=== PATIENT | male | born 1990 | race Native Hawaiian/Other Pacific Islander ===

== ENCOUNTER → 2016-08-18 | Outpatient (CLI) | payer OTHER ==
--- NOTE | 2016-08-18 19:52 | MR ---
EXAMINATION TYPE: MR shoulder LT wo con DATE OF EXAM: 08/18/2016 6:02 PM COMPARISON: NONE HISTORY: Left shoulder pain for 2 months TECHNIQUE: Multiplanar, multisequence imaging of the left shoulder is performed without contrast. FINDINGS: Rotator Cuff: There is tendinosis, thickening and abnormal increased signal within the tendon, there is fluid signal in the subacromial subdeltoid bursa, attenuation of the rotator cuff tendon with part ial-thickness tear suspected of the infraspinatus tendon approximately 1 cm from the insertion Acromioclavicular Joint: Hypertrophic changes present. Glenohumeral Joint: No significant arthropathy is evident Labrum: The labrum appears grossly intact given limitation of non-arthrogram study. Biceps Tendon: The long head of biceps is in normal location within bicipital groove. Bone marrow signal: No focal abnormal marrow signal is appreciated. Other: There is some motion on the exam. IMPRESSION: Findings indicative of impingement with tendinosis and partial thickness tear of the rotator cuff ten don.
== END | disposition home or self-care (01) ==
LOC: RADMRIMAIN 16:36
PROVIDERS: ATTEND Internal Medicine
DX: M75.112 Incomplete rotator cuff tear or rupture of left shoulder, not specified as traumatic (principal); M25.812 Other specified joint disorders, left shoulder

== ENCOUNTER 2016-11-02 21:29 | Inpatient (IN) | payer MEDICAID, OTHER ==
--- NOTE | 2016-11-02 21:49 | ED ---
Psych HPI - General Chief Complaint: Psychiatric Symptoms Stated Complaint: Mental Health Time Seen by Provider: 11/02/16 21:30 Source: patient, police, RN notes reviewed Mode of arrival: ambulatory - History of Present Illness Initial Comments: 26-year-old male presents emergency Department with police for psychiatric evaluation. Patient states that he is currently suicidal and depressed. Patient states that he is about to lose his kids and is court date tomorrow. Patient states that he is standing by the train tracks the pain was calm and states that he started in front of it. In which an officer grabbed by the way. Patient does have a laceration to his forehead and complains of right hand pain. Patient states he believes his tetanus is up-to-date. Patient denies any illicit drug abuse but states he does drink alcohol on a regular basis. - Related Data Home Medications Medication Instructions Recorded Confirmed Albuterol Inhaler [Ventolin Hfa 2 puff INHALATION RT-QID PRN 11/02/16 11/02/16 Inhaler] HYDROcodone/APAP 10-325MG [[place] 1 tab PO BID PRN 11/02/16 11/02/16 10-325] Loratadine [Claritin] 10 mg PO DAILY PRN 11/02/16 11/02/16 Previous Rx's Medication Instructions Recorded Nicotine 14Mg/24Hr Patch [Habitrol] 1 patch TRANSDERM DAILY #14 patch 11/05/16 Allergies Allergy/AdvReac Type Severity Reaction Status Date / Time Pertussis Vaccines Allergy Rash/Hives Verified 11/03/16 23:15 Review of Systems ROS Statement: Those systems with pertinent positive or pertinent negative responses have been documented in the HPI. ROS Other: All systems not noted in ROS Statement are negative. Past Medical History Past Medical History: Asthma History of Any Multi-Drug Resistant Organisms: None Reported Additional Past Surgical History / Comment(s): eye surgery Past Psychological History: Anxiety, Depression Smoking Status: Current every day smoker Past Alcohol Use History: Daily, Heavy Past Drug Use History: None Reported, Prescription Drug Abuse - Past Family History Father Family Medical History: No Reported History Mother Family Medical History: Musculoskeletal Disorder Additional Family Medical History / Comment(s): anxiety Brother(s) Family Medical History: Cancer Daughter(s) Family Medical History: No Reported History Son(s) Family Medical History: No Reported History General Exam Limitations: no limitations General appearance: alert, in no apparent distress Head exam: Present: atraumatic, normocephalic. Absent: normal inspection ( Superficial laceration to the for an approximate 1 cm) Eye exam: Present: normal appearance, PERRL, EOMI. Absent: scleral icterus, conjunctival injection, periorbital swelling ENT exam: Present: normal exam, normal oropharynx, mucous membranes moist, TM's normal bilaterally Neck exam: Present: normal inspection, full ROM. Absent: tenderness, meningismus, lymphadenopathy Respiratory exam: Present: normal lung sounds bilaterally. Absent: respiratory distress, wheezes, rales, rhonchi, stridor Cardiovascular Exam: Present: regular rate, normal rhythm, normal heart sounds. Absent: systolic murmur, diastolic murmur, rubs, gallop, clicks GI/Abdominal exam: Present: soft, normal bowel sounds. Absent: distended, tenderness, guarding, rebound, rigid Extremities exam: Present: other (Right hand there is tenderness over the second third digit across the PIP there is small abrasion noted) Back exam: Present: full ROM. Absent: tenderness Neurological exam: Present: alert, oriented X3, CN II-XII intact, reflexes normal. Absent: motor sensory deficit Psychiatric exam: Present: depressed Skin exam: Present: warm, dry, intact, normal color. Absent: rash Course Vital Signs 11/02/16 11/03/16 21:39 05:25 Temperature 97.1 F L 98 F Pulse Rate 85 60 Respiratory 20 18 Rate Blood Pressure 126/71 103/61 O2 Sat by Pulse 98 100 Oximetry Medical Decision Making - Lab Data Result diagrams: 11/03/16 08:52 11/03/16 08:52 Disposition Clinical Impression: Depression Disposition: TRANSFER TO PSYCH HOSP/UNIT Condition: Stable
--- NOTE | 2016-11-02 22:07 | CT ---
EXAMINATION TYPE: CT brain wo con DATE OF EXAM: 11/02/2016 9:58 PM COMPARISON: EXAMINATION TYPE: CT brain wo con DATE OF EXAM: 11/02/2016 9:58 PM COMPARISON: NONE HISTORY: Suicide attempt today. CT DLP: 1078.20 mGycm Automated exposure control for dose reduction was used. FINDINGS: The ventricles and sulci appear normal. There is no mass effect nor midline shift. There is no sign o f intracranial hemorrhage. The calvarium is intact. There is medial deviation of the medial wall of t he right bony orbit consistent with old blowout fracture. IMPRESSION: NO ACUTE INTRACRANIAL ABNORMALITY. THERE IS PROBABLY AN OLD BLOWOUT FRACTURE OF THE MEDIAL WALL RIGHT BONY ORBIT. HISTORY: Suicide attempt today. CT DLP: 1078.20 mGycm Automated exposure control for dose reduction was used. FINDINGS: There is no acute intracranial hemorrhage, mass effect, or midline shift identified. The ventricles and sulci are within normal limits in size. The globes are intact and the visualized sinuses are debbie ar. IMPRESSION: No acute intracranial hemorrhage, mass effect, or midline shift is seen.
--- NOTE | 2016-11-02 22:42 | XR ---
EXAM: XR Right Hand Complete, 3 or More Views CLINICAL HISTORY: Reason: Pain TECHNIQUE: Frontal, lateral and oblique views of the right hand. COMPARISON: No relevant prior studies available. FINDINGS: Bones/joints: Unremarkable. No acute fracture. No dislocation. Soft tissues: Unremarkable. No radiopaque foreign body. IMPRESSION: Normal right hand x-rays.
[2016-11-03] MEDS ORDERED: ACETAMINOPHEN TAB 325 MG TAB PO PRN (05:15)
[2016-11-03] MEDS ORDERED: MAG HYDROX/AL HYDROX/SIMETH 30 ML CUP PO PRN (05:15)
[2016-11-03] MEDS ORDERED: MAGNESIUM HYDROXIDE 2,400 MG/10 ML CUP PO PRN (05:15)
[2016-11-03] MEDS ORDERED: LORATADINE 10 MG TAB PO PRN (05:21)
[2016-11-03] MEDS ORDERED: ALBUTEROL INHALER 60 PUFF/8 GM INHALER INHALATION PRN (05:21)
[2016-11-03] MEDS ORDERED: AMOXICILLIN 500 MG CAP PO SCH (05:30)
[2016-11-03] MEDS ORDERED: LORazepam 1 MG TAB PO PRN (07:02)
[2016-11-03 09:30] LABS: ALT 39 U/L (21-72); AST 39 U/L (17-59); Alkaline Phosphatase 47 U/L (38-126); Anion Gap 10 mmol/L; Blood Urea Nitrogen 15 mg/dL (9-20); Calcium 9.4 mg/dL (8.4-10.2); Carbon Dioxide 26 mmol/L (22-30); Chloride 108 mmol/L (98-107); Glucose 91 mg/dL (74-99); Non-African American GFR(MDRD) >60 (>60 ml/min/1.73 sqM); Potassium 4.6 mmol/L (3.5-5.1); Sodium 144 mmol/L (137-145); Total Bilirubin 0.9 mg/dL (0.2-1.3)
[2016-11-03 09:41] LABS: Basophils # (A) 0.1 k/uL (0-0.2); Basophils % (A) 1 %; CH 32.3; CHCM 34.2; Eosinophils # (A) 0.2 k/uL (0-0.7); Eosinophils % (A) 2 %; HDW 2.19; HGB 14.3 gm/dL (13.0-17.5); Luc # (Auto) 0.18; Luc % (Auto) 2; Lymphocytes # (A) 1.4 k/uL (1.0-4.8); Lymphocytes % (A) 17 %; MCH 32.3 pg (25.0-35.0); MCHC 34.1 g/dL (31.0-37.0); MCV 94.9 fL (80.0-100.0); Mean Platelet Volume 6.8; Monocytes # (A) 0.5 k/uL (0-1.0); Monocytes % (A) 6 %; Neutrophils # (A) 5.7 k/uL (1.3-7.7); Neutrophils % (A) 71 %; RBC 4.43 m/uL (4.30-5.90); RDW 12.4 % (11.5-15.5); WBC (Perox) 7.69
[2016-11-03] MEDS: AMOXICILLIN 500 MG CAP PO SCH ×2 (10:51→17:43)
[2016-11-03] MEDS: NICOTINE 14MG/24HR PATCH TRANSDERM SCH (10:53)
--- NOTE | 2016-11-03 12:06 | P.HP ---
Psychiatric H&P - . H&P Date: 11/03/16 History & Physical: IDENTIFYING DATA: Mr. Ogden is a 26-year-old single male who [facility]. The patrol police sergeant completed a Petition that read "Arturo attempted to jump in front of a moving train to try to kill himself. Arturo was stopped by deputies as he ran in front of a train. He advised me he wanted to ." HISTORY OF PRESENT ILLNESS: He described feeling stressed over financial, housing and child custody issues. 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 He lost a job because he was unable to perform the duties due to alleged work related shoulder injury. After he lost a job he was unable to pay rent and lost his home. He has been living with friends and family since June. In addition, CPS became involved when his ex- girlfriend abandoned their 2 young children at school. This occurred about one month ago and he has since been awarded temporary custody. He is unaware of his ex-girlfriends whereabouts. The children sleep at his parents home but he spends the day with the children. He had a probate hearing this morning regarding custody of the 2 children. He described increased alcohol use over the last several months. On the day of admission he drank excessively. He went to the park with his 2 children and some friends. He recalls drinking several beers and at least 3 pints of liquor. He does not remember what occurred at the park but his friends abandoned him and his 2 children. He called his mother to slate picker the children. He remembers walking to the train tracks and attempting to step in front of a moving train. He stated he felt depressed and overwhelmed by his social problems. He remembers the police intervening, handcuffing him and placed in the back of the police car. He sustained a laceration to his forehead because he was banging his head against the Plexiglas divider in the police car. His BAT on presentation EC was 0.182. In retrospect, he attributes the distress and increased alcohol use to concern over the outcome of the child custody hearing this morning. He denied prior suicide attempts or gestures. He described feeling depressed but denied that he had thought about or suicide prior to becoming intoxicated. He described a general sense of anxiety related to his social problems but denied symptoms suggestive of panic attack. He denied periods of elevated mood or sustained irritability consistent with karne or hypomania. He denied psychotic symptoms such as auditory or visual hallucinations, ideas reference, thought insertion, thought broadcasting or thought control. He denied alcohol withdrawal symptoms PAST PSYCHIATRIC HISTORY: He denied history of mental health treatment or psychiatric hospitalizations. PAST MEDICAL HISTORY: He described a history of right shoulder pain for which she is prescribed Narco. ALLERGIES: Pertussis vaccines. SUBSTANCE USE HISTORY: He began using alcohol when he is 11 years old. He was vague about the amount and frequency but admitted that his alcohol use other that his alcohol use increased over the last "several months". He usually drinks beer and often has 5 more drinks during a drinking episode. He smokes marijuana "occasionally" but denied use of other drugs such as cocaine, crack cocaine, methamphetamine, heroin etc. FAMILY PSYCHIATRIC/SUBSTANCE USE HISTORY: He believes his father had a drinking problem when he was younger. He is unaware of a family history of mental illness. LEGAL HISTORY: According to the [facility] court docket he has charges of attempted child abuse 3 degree, trespassing, and alcohol consumption by a minor second offense. He denied that he is on probation, parole or has pending charges. SOCIAL HISTORY: He was born and raised in [facility] [place] by an intact family. He has 2 brothers and 1 sister. He left school when he was 17 years old and began working. He did not obtain his GED. He has 2 children, ages 2 and 4, by a former girlfriend. He is temporary guardianship and is at risk for losing custody of the children. He is currently unemployed and has no income. He has no stable housing. MENTAL STATUS EXAM: He presented as a thin 26-year-old [place] male who was pleasant on approach. He made eye contact and attended to the interview. He had a 1.5 cm laceration on his forehead and no prominent physical abnormalities. He had a blunted facial expression. He was alert and oriented to person, place and time. He showed no abnormality of psychomotor activity. He had no abnormal involuntary movements. His speech was spontaneous with slight decrease in rate and rhythm. He had no articulation difficulties. His affect was anxious but stable and appropriate. He denied suicidal ideation or wishes. He denied homicidal ideation. He feels hopeless and helpless in regard to his inability to work or take care of his children. He ruminated about child custody hearing. He did not express ideas of reference, paranoid ideation or delusional thinking. His thinking was concrete but his associations were coherent and logical. Global impression of intellect is average to below. He has limited awareness or understanding of his alcohol use problems. STRENGTHS: Good physical health, supportive family. WEAKNESSES: According his disorder, lack of income, lack of housing, child custody issues. IMPRESSION: His 26-year-old Finnish male who has history of alcohol use disorder. He presented to [facility] involuntarily and the police completed a petition for hospitalization. He became acutely intoxicated yesterday to the point where he did not remember what had occurred. He described becoming increasingly depressed and attempted to walk in front of moving train. He complains of depression related to his multiple social stresses include unemployment, lack of income, lack of housing and child custody issues. He is denying alcohol withdrawal symptoms and is minimizing the severity of his alcohol use problems. He is currently denying suicidal ideation, intent or plan. He remains concerned about child custody because a hearing was scheduled this morning. He should be treated on an outpatient basis with a combination of psychopharmacology and multimodal therapy. PRINCIPLE DIAGNOSIS: Unspecified depressive disorder, alcohol use disorder, alcohol intoxication, lack of housing, lack of income RECOMMENDATION: Continue inpatient hospitalization. He agreed to a voluntary admission and signed the voluntary admission form. Continue CIWA with lorazepam for alcohol withdrawal symptoms. Consult medicine for initial physical exam and medical history. Once he is sober, evaluate for treatment with antidepressant. Encourage participation in therapeutic groups and activities. Evaluate clinical status response to treatment on a daily basis. Allergies Allergy/AdvReac Type Severity Reaction Status Date / Time Pertussis Vaccines Allergy Rash/Hives Verified 11/02/16 21:55 Vital Signs Temp 97 F L 11/03/16 05:42 Pulse 62 11/03/16 05:42 Resp 18 11/03/16 05:42 BP 129/78 11/03/16 05:42 Pulse Ox 100 11/03/16 05:25 Intake & Output 11/02/16 11/03/16 11/03/16 18:59 06:59 18:59 Weight 74.843 kg Laboratory Last Values WBC 8.0 k/uL (3.8-10.6) 11/03/16 08:52 RBC 4.43 m/uL (4.30-5.90) 11/03/16 08:52 Hgb 14.3 gm/dL (13.0-17.5) 11/03/16 08:52 Hct 42.0 % (39.0-53.0) 11/03/16 08:52 MCV 94.9 fL (80.0-100.0) 11/03/16 08:52 MCH 32.3 pg (25.0-35.0) 11/03/16 08:52 MCHC 34.1 g/dL (31.0-37.0) 11/03/16 08:52 RDW 12.4 % (11.5-15.5) 11/03/16 08:52 Plt Count 293 k/uL (150-450) 11/03/16 08:52 Neutrophils % 71 % 11/03/16 08:52 Lymphocytes % 17 % 11/03/16 08:52 Monocytes % 6 % 11/03/16 08:52 Eosinophils % 2 % 11/03/16 08:52 Basophils % 1 % 11/03/16 08:52 Neutrophils # 5.7 k/uL (1.3-7.7) 11/03/16 08:52 Lymphocytes # 1.4 k/uL (1.0-4.8) 11/03/16 08:52 Monocytes # 0.5 k/uL (0-1.0) 11/03/16 08:52 Eosinophils # 0.2 k/uL (0-0.7) 11/03/16 08:52 Basophils # 0.1 k/uL (0-0.2) 11/03/16 08:52 Sodium 144 mmol/L (137-145) 11/03/16 08:52 Potassium 4.6 mmol/L (3.5-5.1) 11/03/16 08:52 Chloride 108 mmol/L (98-107) H 11/03/16 08:52 Carbon Dioxide 26 mmol/L (22-30) 11/03/16 08:52 Anion Gap 10 mmol/L 11/03/16 08:52 BUN 15 mg/dL (9-20) 11/03/16 08:52 Creatinine 0.81 mg/dL (0.66-1.25) 11/03/16 08:52 Est GFR (MDRD) Af Amer >60 (>60 ml/min/1.73 sqM) 11/03/16 08:52 Est GFR (MDRD) Non-Af >60 (>60 ml/min/1.73 sqM) 11/03/16 08:52 Glucose 91 mg/dL (74-99) 11/03/16 08:52 Calcium 9.4 mg/dL (8.4-10.2) 11/03/16 08:52 Total Bilirubin 0.9 mg/dL (0.2-1.3) 11/03/16 08:52 AST 39 U/L (17-59) 11/03/16 08:52 ALT 39 U/L (21-72) 11/03/16 08:52 Alkaline Phosphatase 47 U/L (38-126) 11/03/16 08:52 Total Protein 7.0 g/dL (6.3-8.2) 11/03/16 08:52 Albumin 4.5 g/dL (3.5-5.0) 11/03/16 08:52 TSH 3.160 mIU/L (0.465-4.680) 11/03/16 08:52 11/03/16 11:32
[2016-11-03] MEDS ORDERED: IBUPROFEN 200 MG TAB PO PRN (14:56)
--- NOTE | 2016-11-03 18:02 | CONS ---
DATE OF CONSULTATION: 11/03/2016 REASON FOR CONSULTATION: Advice regarding substance abuse and other medical issues requested by psychiatrist. HISTORY OF PRESENT ILLNESS: This 27-year-old gentleman with a past history of anxiety, depression, history of prescription drug abuse, history of low back pain, history of asthma, using on a p.r.n. being followed by Dr. Robins in the outpatient setting, apparently was taken to [facility] and was admitted for psychiatric evaluation after the patient attempted jumping from a running train apparently. There is no history of fever, rigors or chills. No history of headache, loss of consciousness or seizures. Patient had a lacerated small injury on the forehead. The patient was trying to butt heads with the police car. The patient had a CT scan which did not ended ataxia no chest pain. No chest pain, no palpitations. No history of headache, loss of consciousness or seizures. No fevers, rigors or chills. No nausea or vomiting or diarrhea at this time. Past medical history of anxiety, depression, history of nicotine dependence, history of prescription drug abuse, history of substance abuse. MEDICATIONS: Home medications are: 1. [place] 10 mg b.i.d. p.r.n. 2. Amoxil 500 mg. 3. Ventolin HFA 2 puffs q.i.d. 4. Claritin 10 mg daily p.r.n. ALLERGIES: PERTUSSIS VACCINE. FAMILY HISTORY: No history of heart disease or strokes in the family. SOCIAL HISTORY: Smoking and polysubstance abuse. REVIEW OF SYSTEMS: HEENT: As mentioned earlier. CARDIOVASCULAR: No angina or palpitations. RESPIRATORY: No cough. No hemoptysis. GASTROINTESTINAL: No nausea or vomiting. : No dysuria. CENTRAL NERVOUS SYSTEM: No numbness, weakness. ALLERGY/IMMUNOLOGY: as mentioned earlier. HEMATOLOGY/ONCOLOGY: No history of anemia. ENDOCRINE: No history of diabetes. CONSTITUTIONAL: As mentioned earlier. DERMATOLOGY: As mentioned earlier RHEUMATOLOGY: Negative. PSYCHIATRY: As mentioned earlier. PHYSICAL EXAMINATION: The patient is alert and oriented times three. Pulse 60. Blood pressure 103/61, respiration 18, temperature 98 degrees. Pulse ox 100% on room air. HEENT: Conjunctivae normal. NECK: No jugular venous distention. CARDIOVASCULAR: S1, S2 muffled. RESPIRATORY: Breath sounds diminished in the bases. A few rhonchi. No crackles. ABDOMEN: soft, nontender. No mass palpable. LEGS: No edema. No swelling. Minimal bruise over the right knee with mild tenderness. CENTRAL NERVOUS SYSTEM: Higher functions as mentioned earlier. Moves all four limbs. No focal deficits. LYMPHATICS: No lymph nodes palpable in the neck, axillae or groin. SKIN: Skin of the forehead lacerated wound . LABS: CBC within normal limits. Chloride is 108. CMP within normal limits. ASSESSMENT: 1. History of asthma, chronic intermittent. 2. History of polysubstance abuse. 3. History of nicotine dependence. 4. Anxiety. Depression. 5. History of small lacerated wound superficial on the forehead. 6. FULL CODE. RECOMMENDATIONS AND DISCUSSION: In this 27 -year-old gentleman who presented with multiple complex medical issues, we will monitor the patient closely, continue the current medications, continue symptomatic treatment. I would recommend local antibiotics. Continue to monitor. Otherwise symptomatic treatment with Motrin is suggested at this time. Recommended close follow up with Dr. Robins as well as social work program coordinator counselling also. We will follow the patient closely with you. Thank you for letting us participate in the care of this patient. KIMBERLY
[2016-11-03 23:02] VITALS: BMI 19.0
[2016-11-04] MEDS: AMOXICILLIN 500 MG CAP PO SCH ×4 (00:46→23:55)
[2016-11-04 06:22] VITALS: RESP 16
[2016-11-04] MEDS: NICOTINE 14MG/24HR PATCH TRANSDERM SCH (08:56)
[2016-11-04] MEDS ORDERED: BACITRACIN OINT 1 EACH PACKET TOPICAL ONE (09:01)
--- NOTE | 2016-11-04 11:34 | P.PN ---
Progress Note - Text SUBJECTIVE: I reviewed the medical record, interviewed Mr. Bagley and discuss his treatment and treatment plan during team meeting. He is unaware of the outcome of the probate hearing yesterday regarding his children. His mother notified the courts about his admission and told the psych social worker that CPS will remain involved. He expressed interest in substance abuse treatment. He talked about his mother frequently criticizing his alcohol use and his difficulty controlling his use. He gave usual story where one drink is not enough and when he intends to have 1 beer he often drinks 5 or more. He denied alcohol withdrawal symptoms. He denied feeling depressed or having thoughts of or suicide. He plans to live with his parents temporarily after discharge and will live with either his brother or his cousin until was able to find a job and went to his own apartment. OBJECTIVE: He presented as a casually groomed and [place] male who was pleasant on approach. He maintained eye contact and attended to the interview. He had a healing cut on his forehead but no prominent physical abnormalities. He had a blunted facial expression. He was alert and oriented to person, place and time. He showed slight psychomotor ideation but no abnormal involuntary movements. His hands were steady and there is no evidence of tremor. His speech was spontaneous with normal rate, rhythm and volume. His affect was blunted but stable and appropriate. He denied suicidal ideation or wishes. He denied homicidal ideation. He denied feeling hopeless, helpless or worthless. He ruminated about his multiple stresses e.g. care of his children, lack of income, lack of permanent housing. He did not express ideas reference, paranoid ideation or delusional thinking. His thinking was concrete but his associations were coherent and logical. He denied hallucinations and did not appear to be responding to internal stimuli. ASSESSMENT: He is having minimal to no alcohol withdrawal symptoms. He expressed interest in a substance abuse treatment. Overall, he appears minimally to moderately mentally ill and much improved from admission. PLAN: To call the Access line to arrange admission to a substance abuse treatment program. Continue CIWA with lorazepam for alcohol withdrawal symptoms. There is no indication for antidepressant medication at this time. Reschedule family meeting to 11/05/2016.
[2016-11-05 06:48] VITALS: BP 132/67; PULSE 63; TEMP 98.1
[2016-11-05] MEDS: AMOXICILLIN 500 MG CAP PO SCH (08:29)
[2016-11-05] MEDS: NICOTINE 14MG/24HR PATCH TRANSDERM SCH (08:29)
--- NOTE | 2016-11-05 13:50 | P.DS ---
Providers Date of admission: 11/03/16 04:58 Attending physician: Balta Eid MD Consults: 11/03/16 05:15 Consult Physician Routine Consulting Provider: Myrna Diallo Consult Reason/Comments: H and P with medical follow up Do you want consulting provider notified?: Yes, Notify in am Primary care physician: Julienne Rosenberg Charbal - Discharge Diagnosis(es) (1) Suicidal ideation Status: Acute Priority: Medium (2) Alcohol use disorder, moderate, dependence Status: Chronic Priority: Medium (3) Alcohol use with alcohol-induced mood disorder Status: Acute Priority: High Hospital Course: Mr. Ogden is a 26-year-old single male who [facility]. The police specialist completed a Petition that read "Arturo attempted to jump in front of a moving train to try to kill himself. Arturo was stopped by deputies as he ran in front of a train. He advised me he wanted to ." He described feeling stressed over financial, housing and child custody issues. 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 He lost a job because he was unable to perform the duties due to alleged work related shoulder injury. After he lost a job he was unable to pay rent and lost his home. He has been living with friends and family since June. In addition, CPS became involved when his ex-girlfriend abandoned their 2 young children at school. This occurred about one month ago and he has since been awarded temporary custody. He is unaware of his ex-girlfriends whereabouts. The children sleep at his parents home but he spends the day with the children. He had a probate hearing this morning regarding custody of the 2 children. He described increased alcohol use over the last several months. On the day of admission he drank excessively. He went to the park with his 2 children and some friends. He recalls drinking several beers and at least 3 pints of liquor. He does not remember what occurred at the park but his friends abandoned him and his 2 children. He called his mother to slate picker the children. He remembers walking to the train tracks and attempting to step in front of a moving train. He stated he felt depressed and overwhelmed by his social problems. He remembers the police intervening, handcuffing him and placed in the back of the police car. He sustained a laceration to his forehead because he was banging his head against the Plexiglas divider in the police car. His BAT on presentation EC was 0.182. In retrospect, he attributes the distress and increased alcohol use to concern over the outcome of the child custody hearing this morning. He denied prior suicide attempts or gestures. He described feeling depressed but denied that he had thought about or suicide prior to becoming intoxicated. He described a general sense of anxiety related to his social problems but denied symptoms suggestive of panic attack. He denied periods of elevated mood or sustained irritability consistent with karen or hypomania. He denied psychotic symptoms such as auditory or visual hallucinations, ideas reference, thought insertion, thought broadcasting or thought control. He denied alcohol withdrawal symptoms We admitted him to the psychiatric unit under the care of this writer technical publications. We provided a biopsychosocial assessment. He agreed to a voluntary admission and signed the consent for voluntary admission. We consulted medicine for initial physical exam and medical history. The technology methodology consultant diagnose a history of asthma , substance use, tobacco use disorder and a small superficial lacerations of forehead. We manage the alcohol withdrawal symptoms using the CIWA and lorazepam. He had minimal to mild alcohol withdrawal symptoms. Once he is sober he denied feeling depressed or having thoughts of or suicide. We discussed his alcohol use and recommended substance abuse treatment. He contact the Access line and arrange for outpatient substance abuse treatment. At the time of discharge she denied feeling depressed or having thoughts of or suicide. He planned to live with his parents temporarily and then move in with his brother and cousin until he finds work and cannot afford his own apartment. Patient Condition at Discharge: Stable Plan - Discharge Summary New Discharge Prescriptions: New Nicotine 14Mg/24Hr Patch [Habitrol] 1 patch TRANSDERM DAILY #14 patch Continue HYDROcodone/APAP 10-325MG [[place] 10-325] 1 tab PO BID PRN PRN Reason: Pain Loratadine [Claritin] 10 mg PO DAILY PRN PRN Reason: Allergy Symptoms Albuterol Inhaler [Ventolin Hfa Inhaler] 2 puff INHALATION RT-QID PRN PRN Reason: Shortness Of Breath Discontinued Amoxicillin 500 mg PO Q8H Discharge Medication List Albuterol Inhaler [Ventolin Hfa Inhaler] 2 puff INHALATION RT-QID PRN 11/02/16 [ History] HYDROcodone/APAP 10-325MG [[place] 10-325] 1 tab PO BID PRN 11/02/16 [History] Loratadine [Claritin] 10 mg PO DAILY PRN 11/02/16 [History] Nicotine 14Mg/24Hr Patch [Habitrol] 1 patch TRANSDERM DAILY #14 patch 11/05/16 [ Rx] Follow up Appointment(s)/Referral(s): [facility] [Outside] - 11/10/16 12:30 pm (Outpatient rehab 11/10/16 at 12:30 pm) Piyush Robins MD [Primary Care Provider] - 1-2 days Patient Instructions/Handouts: Depression (DC), Alcohol Intoxication (DC) Activity/Diet/Wound Care/Special Instructions: Keep your follow up appointment as scheduled. Do not drink alcohol or use illegal drugs. Call the Crisis Line if needed . Discharge Disposition: HOME SELF-CARE
== END 2016-11-05 11:50 | disposition home or self-care (01) | DRG 897 ==
LOC: EC 21:29 → 3MHU 11-03 04:58
PROVIDERS: ADMIT Psychiatry & Neurology Psychiatry; ATTEND Psychiatry & Neurology Psychiatry
DX: F10.24 Alcohol dependence with alcohol-induced mood disorder (principal); F10.239 Alcohol dependence with withdrawal, unspecified; R45.851 Suicidal ideations; F32.9 Major depressive disorder, single episode, unspecified; J45.909 Unspecified asthma, uncomplicated; S01.81XA Laceration without foreign body of other part of head, initial encounter; F17.200 Nicotine dependence, unspecified, uncomplicated; F41.9 Anxiety disorder, unspecified; Z88.7 Allergy status to serum and vaccine
CPT/HCPCS: 70450; 80053; 82075; 84443; 85025

== ENCOUNTER 2017-12-01 22:58 | Emergency (ER) | payer OTHER ==
--- NOTE | 2017-12-01 23:26 | ED ---
Head Injury HPI - General Source: patient, EMS Mode of arrival: EMS Limitations: no limitations <Yael Guerra - Last Filed: 12/02/17 00:55> <Charlie Carcamo - Last Filed: 12/02/17 06:38> - General Chief complaint: Head Injury Stated complaint: head lac Time Seen by Provider: 12/01/17 23:02 - History of Present Illness Initial comments: 27 years old male has been drinking tonight he fell when he was standing he hit his head against a hard surface he thinks he was a ceramic floor him he denies any loss of consciousness complaining about the headache any neck pain no chest pain or shortness of breath no loss of consciousness no abdominal pain no other injury to upper or lower extremity (Yael Guerra) - Related Data Home Medications Medication Instructions Recorded Confirmed Albuterol Inhaler [Ventolin Hfa 1 - 2 puff INHALATION RT-Q6H PRN 12/01/17 Inhaler] Cetirizine HCl [Zyrtec] 10 mg PO DAILY 12/01/17 12/01/17 traZODone HCL 25 mg PO HS 12/01/17 12/01/17 Allergies/Adverse reactions: Allergies Allergy/AdvReac Type Severity Reaction Status Date / Time Pertussis Vaccines Allergy Rash/Hives Verified 12/01/17 23:10 Review of Systems ROS Other: All systems not noted in ROS Statement are negative. <Yael Guerra - Last Filed: 12/02/17 00:55> ROS Other: All systems not noted in ROS Statement are negative. <Charlie Carcamo - Last Filed: 12/02/17 06:38> ROS Statement: Those systems with pertinent positive or pertinent negative responses have been documented in the HPI. Past Medical History Past Medical History: Asthma History of Any Multi-Drug Resistant Organisms: None Reported Additional Past Surgical History / Comment(s): eye surgery Past Anesthesia/Blood Transfusion Reactions: No Reported Reaction Past Psychological History: Anxiety, Depression Smoking Status: Current every day smoker Past Alcohol Use History: Daily, Heavy Past Drug Use History: None Reported, Prescription Drug Abuse - Past Family History Father Family Medical History: No Reported History Mother Family Medical History: Musculoskeletal Disorder Additional Family Medical History / Comment(s): anxiety Brother(s) Family Medical History: Cancer Daughter(s) Family Medical History: No Reported History Son(s) Family Medical History: No Reported History <CharlieYael - Last Filed: 12/02/17 00:55> General Exam Limitations: no limitations <Charlie,Yael - Last Filed: 12/02/17 00:55> <Charlie Carcamo - Last Filed: 12/02/17 06:38> - General Exam Comments Initial Comments: General: The patient is awake and alert, in no distress, and does not appear acutely ill. Skin: Skin is warm and dry and no rashes or lesions are noted. He does have a laceration on his scalp I was unable to assess this because of his refusal to cooperate with the laceration assessment Eye: Pupils are equal, round and reactive to light, extra-ocular movements are intact; there is normal conjunctiva bilaterally. Ears, nose, mouth and throat: There are moist mucous membranes and no oral lesions. Neck: The neck is supple, there is no tenderness or JVD. Cardiovascular: There is a regular rate and rhythm. No murmur, rub or gallop is appreciated. Respiratory: To auscultation bilateral, no wheezing no rhonchi no distress respiratory muro noticed Gastrointestinal: Soft, non-distended, non-tender abdomen without masses or organomegaly noted. There is no rebound or guarding present. Bowel sounds are unremarkable. Back: There is no tenderness to palpation in the midline. There is no obvious deformity. Musculoskeletal: Normal ROM, no tenderness, There is no pedal edema. There is no calf tenderness or swelling. No cords were appreciated. Neurological: CN II-XII intact, Cranial nerves III through XII are intact. There are no obvious motor or sensory deficits. Coordination appears grossly intact. Speech is normal. Psychiatric: Cooperative, appropriate mood & affect, normal judgment. (Yael Guerra) Course <Yael Guerra - Last Filed: 12/02/17 00:55> <Charlie Carcamo - Last Filed: 12/02/17 06:38> Vital Signs 12/01/17 12/02/17 22:59 01:05 Temperature 97.3 F L Pulse Rate 101 H 83 Respiratory 20 18 Rate Blood Pressure 130/90 114/60 O2 Sat by Pulse 98 97 Oximetry - Reevaluation(s) Reevaluation #1: CT is normal C-spine is normal as well according is 260 considering he was endangering his safety and staff we sedated him with Haldol 10 mg +2 mg of Ativan intramuscular him a patient be endorsed to Dr. Carcamo at term 1 AM 12/02/17 01:04 (Yael Guerra) Procedures - Restraint - Face to Face Restraint Occurrence 1 Patient's Immediate Situation: Endangers self safety, Endangers others' safety Patient's Reaction to the Intervention: Angry, Bizarre, Combative Patient's Medical & Behavioral Condition: Other (see comment) (Intoxicated) Need to Continue or Terminate Restraint or Seclusion: Continue Face to Face Eval of Restraint Date: 12/02/17 Face to Face Eval of Restraint Time: 00:30 <Yael Guerra - Last Filed: 12/02/17 00:55> - Laceration Laceration #1 Consent Obtained: emergent situation Time Out Performed: Yes Indication: laceration Site: scalp Description: irregular Depth: simple, single layer Pre-repair: wound explored, irrigated extensively Type of Sutures: other Number of Sutures: 8 Patient Tolerated Procedure: well <Charlie Carcamo - Last Filed: 12/02/17 06:38> - Laceration Laceration #1 Additional Comments: 8 joe (Charlie Carcamo) - Restraint - Face to Face Restraint Occurrence 1 Patient's Reaction to the Intervention - Comment: He was combative it took 8 people to do the fourth for point restraints (Yael Guerra) Patient's Medical & Behavioral Condition - Comment: Intoxicated and combative, and danger to self and staff (Yael Guerra) Need to Continue or Terminate Restraint/Seclusion - Comment: At 12:50 AM is still using abusive language , irritable and angry and insisting that he wanted to leave (Yael Guerra) Medical Decision Making <Yael Guerra - Last Filed: 12/02/17 00:55> <Charlie Carcamo - Last Filed: 12/02/17 06:38> - Medical Decision Making Patient's care is signed out at shift change awaiting sobriety. Patient is reevaluated, does have a 4 cm scalp laceration which was not repaired secondary to patient's mental status and combative behavior. This was subsequently cleansed and repaired with 8 joe. Patient tolerated the procedure well. Head CT is reviewed, there is no intracranial hemorrhage or mass effect, CT cervical spine is negative. Patient's initial alcohol is quite high. He is observed in the emergency department. On reevaluation at 6:30. Patient is clinically sober. He is ambulatory. He will be discharged home with outpatient follow-up. He should return for staple removal in 14 days. ( Charlie Carcamo) - Lab Data Lab Results 12/01/17 12/01/17 Range/Units 23:32 23:42 Urine Opiates Screen Not Detected (NotDetected) Ur Oxycodone Screen Not Detected (NotDetected) Urine Methadone Screen Not Detected (NotDetected) Ur Propoxyphene Screen Not Detected (NotDetected) Ur Barbiturates Screen Not Detected (NotDetected) U Tricyclic Antidepress Not Detected (NotDetected) Ur Phencyclidine Scrn Not Detected (NotDetected) Ur Amphetamines Screen Not Detected (NotDetected) U Methamphetamines Scrn Not Detected (NotDetected) U Benzodiazepines Scrn Not Detected (NotDetected) Urine Cocaine Screen Not Detected (NotDetected) U Marijuana (THC) Screen Detected H (NotDetected) Serum Alcohol 261 mg/dL Disposition <Yael Guerra - Last Filed: 12/02/17 00:55> Is patient prescribed a controlled substance at d/c from ED?: No Time of Disposition: 06:45 <Charlie Carcamo - Last Filed: 12/02/17 06:38> Clinical Impression: Head injury, Neck pain, Scalp laceration, Aggressive behavior, Acute alcohol intoxication Disposition: HOME SELF-CARE Condition: Fair Instructions: Concussion (ED), Alcohol Intoxication (ED), Staple Care (ED) Referrals: None,Stated [Primary Care Provider] - 1-2 days Katty Guardado MD [STAFF PHYSICIAN] - 1-2 days
[2017-12-01] MEDS ORDERED: LIDOCAINE 1%-EPI 1:100,000 30 ML VIAL SQ STA (23:27)
[2017-12-01] MEDS ORDERED: SODIUM CHLORIDE 0.9% 1,000 ML IV SCH (23:30)
[2017-12-02 00:10] LABS: Amphetamine Screen,Urine Not Detected (NotDetected); Barbiturate Screen,Urine Not Detected (NotDetected); Benzodiazepines Screen,Urine Not Detected (NotDetected); Cocaine Screen,Urine Not Detected (NotDetected); Methadone Screen, Urine Not Detected (NotDetected); Opiate Screen,Urine Not Detected (NotDetected); Oxycodone Screen, Urine Not Detected (NotDetected); Phencyclidine Screen,Urine Not Detected (NotDetected); Tricyclic Antidepressant,Urine Not Detected (NotDetected); Urn Cannabinoid Scrn Detected (NotDetected)
--- NOTE | 2017-12-02 00:17 | CT ---
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 TECHNIQUE: CT scan of the head and cervical spine are performed without contrast. FINDINGS: Ventricles and sulci appear normal. There is no mass effect nor midline shift. There is n o sign of intracranial hemorrhage. There is left parietal scalp soft tissue swelling. The cervical vertebra have fairly normal spacing and alignment. Posterior elements are intact. Skull base is intact. Facet joints appear normal. IMPRESSION: Negative CT scan of the brain. No change Left side scalp hematoma. Negative CT scan of the cervical spine.
[2017-12-02] MEDS ORDERED: HALOPERIDOL LACTATE 5 MG/ML 1 ML VIAL IM PRN (00:31)
[2017-12-02] MEDS ORDERED: LORazepam 2 MG/ML INJ IM STA (00:31)
[2017-12-02 07:00] VITALS: BP 111/64; PULSE 73; RESP 16; TEMP 98.5
== END 2017-12-02 07:01 | disposition home or self-care (01) ==
LOC: EC 22:58
DX: S01.01XA Laceration without foreign body of scalp, initial encounter (principal); M54.2 Cervicalgia; F10.129 Alcohol abuse with intoxication, unspecified; F91.1 Conduct disorder, childhood-onset type; F32.9 Major depressive disorder, single episode, unspecified; F41.9 Anxiety disorder, unspecified; F17.200 Nicotine dependence, unspecified, uncomplicated; Z79.899 Other long term (current) drug therapy; Z88.7 Allergy status to serum and vaccine; W22.8XXA Striking against or struck by other objects, initial encounter; Y93.72 Activity, wrestling; Y92.009 Unspecified place in unspecified non-institutional (private) residence as the place of occurrence of the external cause
CPT/HCPCS: 36415; 80306; 80320; 72125; 70450; 99284; 12002; 96360; 96361 ×6; 96372 ×2; J2060; J1630

== ENCOUNTER 2018-01-15 01:14 | Emergency (ER) | payer OTHER ==
--- NOTE | 2018-01-15 01:53 | ED ---
Psych HPI <Radha Minor P - Last Filed: 01/15/18 06:25> - General Source: patient, police Mode of arrival: ambulatory <Kae Zimmerman - Last Filed: 01/15/18 23:43> - General Chief Complaint: Psychiatric Symptoms Stated Complaint: Mental Health Time Seen by Provider: 01/15/18 01:23 - History of Present Illness Initial Comments: 27-year-old male patient presents the emergency department today after calling the police complaining of suicidal ideation. Patient states that he has been "down" for the last couple of weeks after the right status children were terminated by the court. Patient states that today he felt like he reached a "breaking point". States he has been drinking alcohol was thinking of taking his life. States he had no specific plan and didn't think did actually do it however he was nervous enough to call the police. Patient states he has attempted one time in the past to commit suicide. He denies any street drug use. Denies any auditory or visual hallucinations. States he does not take medication for depression and does not seek outpatient counseling. Denies any current physical concerns or symptoms. Patient denies any recent rash, fever, chills, shortness breath, chest pain, abdominal pain, nausea, vomiting, diarrhea , constipation, back pain, numbness, tingling, dizziness, weakness, hematuria, dysuria, urinary urgency, urinary frequency, headache, visual changes, or any other complaints. (Kae Zimmerman) - Related Data Home Medications Medication Instructions Recorded Confirmed Albuterol Inhaler [Ventolin Hfa 1 - 2 puff INHALATION RT-Q6H PRN 12/01/17 Inhaler] traZODone HCL 25 mg PO HS 12/01/17 01/15/18 Allergies Allergy/AdvReac Type Severity Reaction Status Date / Time Pertussis Vaccines Allergy Rash/Hives Verified 01/15/18 01:21 Review of Systems ROS Other: All systems not noted in ROS Statement are negative. <Radha Minor P - Last Filed: 01/15/18 06:25> ROS Other: All systems not noted in ROS Statement are negative. <Kae Zimmerman - Last Filed: 01/15/18 23:43> ROS Statement: Those systems with pertinent positive or pertinent negative responses have been documented in the HPI. Past Medical History Past Medical History: Asthma History of Any Multi-Drug Resistant Organisms: None Reported Additional Past Surgical History / Comment(s): eye surgery, Past Anesthesia/Blood Transfusion Reactions: No Reported Reaction Past Psychological History: Anxiety, Depression Smoking Status: Current every day smoker Past Alcohol Use History: Daily, Heavy Past Drug Use History: None Reported, Prescription Drug Abuse - Past Family History Father Family Medical History: No Reported History Mother Family Medical History: Musculoskeletal Disorder Additional Family Medical History / Comment(s): anxiety Brother(s) Family Medical History: Cancer Daughter(s) Family Medical History: No Reported History Son(s) Family Medical History: No Reported History <Kae Zimmerman M - Last Filed: 01/15/18 23:43> General Exam Limitations: no limitations General appearance: alert, in no apparent distress, other (This is a well- developed, well-nourished adult male patient in no acute distress. Vital signs upon presentation are temperature 98.0F, pulse 69, respirations 18, blood pressure 116/80, pulse ox 98% on room air.) Eye exam: Present: normal appearance, PERRL, EOMI. Absent: scleral icterus, conjunctival injection, periorbital swelling ENT exam: Present: normal exam, normal oropharynx, mucous membranes moist Respiratory exam: Present: normal lung sounds bilaterally. Absent: respiratory distress, wheezes, rales, rhonchi, stridor Cardiovascular Exam: Present: regular rate, normal rhythm, normal heart sounds. Absent: systolic murmur, diastolic murmur, rubs, gallop, clicks Neurological exam: Present: alert, oriented X3, CN II-XII intact Psychiatric exam: Present: depressed, suicidal ideation Skin exam: Present: warm, dry, intact, normal color. Absent: rash <Kae Zimmerman M - Last Filed: 01/15/18 23:43> Course <Radha Minor P - Last Filed: 01/15/18 06:25> <Kae Zimmerman M - Last Filed: 01/15/18 23:43> Vital Signs 01/15/18 01/15/18 01:17 06:33 Temperature 98.0 F 97.2 F L Pulse Rate 69 60 Respiratory 18 15 Rate Blood Pressure 116/80 114/68 O2 Sat by Pulse 98 98 Oximetry - Reevaluation(s) Reevaluation #1: 01/15/18 05:08 27-year-old male patient presented to the emergency department today for evaluation of suicidal ideation, petitioned by [place] [employer]. Patient was intoxicated, sober 0540. Patient will have EPS evaluation at that time. Care will be handed over to Dr. Minor who will follow patient until discharge. (Kae Zimmerman) - Medical Decision Making Patient care was signed out to me by Kae Zimmerman, patient presented with passive suicidal thoughts after he lost custody of his children. Patient was evaluated by the EPS nurse who recommends discharge home with close follow-up with psych. Patient's mother is at bedside, patient has good support system and is agreeable to plan for discharge home. (Radha Minor) - Lab Data Lab Results 01/15/18 Range/Units 02:00 Urine Opiates Screen Not Detected (NotDetected) Ur Oxycodone Screen Not Detected (NotDetected) Urine Methadone Screen Not Detected (NotDetected) Ur Propoxyphene Screen Not Detected (NotDetected) Ur Barbiturates Screen Not Detected (NotDetected) U Tricyclic Antidepress Not Detected (NotDetected) Ur Phencyclidine Scrn Not Detected (NotDetected) Ur Amphetamines Screen Detected H (NotDetected) U Methamphetamines Scrn Not Detected (NotDetected) U Benzodiazepines Scrn Not Detected (NotDetected) Urine Cocaine Screen Not Detected (NotDetected) U Marijuana (THC) Screen Detected H (NotDetected) Disposition Is patient prescribed a controlled substance at d/c from ED?: No Time of Disposition: 06:25 <Radha Minor - Last Filed: 01/15/18 06:25> <Kae Zimmerman - Last Filed: 01/15/18 23:43> Clinical Impression: Grief Disposition: HOME SELF-CARE Referrals: Piyush Robins MD [Primary Care Provider] - 1-2 days
[2018-01-15 02:15] LABS: Amphetamine Screen,Urine Detected (NotDetected); Barbiturate Screen,Urine Not Detected (NotDetected); Benzodiazepines Screen,Urine Not Detected (NotDetected); Cocaine Screen,Urine Not Detected (NotDetected); Methadone Screen, Urine Not Detected (NotDetected); Opiate Screen,Urine Not Detected (NotDetected); Oxycodone Screen, Urine Not Detected (NotDetected); Phencyclidine Screen,Urine Not Detected (NotDetected); Tricyclic Antidepressant,Urine Not Detected (NotDetected); Urn Cannabinoid Scrn Detected (NotDetected)
[2018-01-15 06:34] VITALS: BP 114/68; PULSE 60; RESP 15; TEMP 97.2
== END 2018-01-15 06:33 | disposition home or self-care (01) ==
LOC: EC 01:14
DX: F43.21 Adjustment disorder with depressed mood (principal); R45.851 Suicidal ideations; F10.120 Alcohol abuse with intoxication, uncomplicated; J45.909 Unspecified asthma, uncomplicated; F17.200 Nicotine dependence, unspecified, uncomplicated; Z88.7 Allergy status to serum and vaccine
CPT/HCPCS: 80306; 82075; 99285

== ENCOUNTER 2018-11-26 14:12 | Emergency (ER) | payer OTHER ==
[2018-11-26 14:48] VITALS: BP 118/76; PULSE 68; RESP 16; TEMP 97.8
--- NOTE | 2018-11-26 15:59 | ED ---
General Adult HPI - General Chief complaint: Extremity Injury, Upper Stated complaint: Hand pain Time Seen by Provider: 11/26/18 15:29 Source: patient Mode of arrival: ambulatory Limitations: no limitations - History of Present Illness Initial comments: Patient is a 28-year-old male presents emergency Department for pain in his right hand. 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 Patient states that he feels tingling in his fingers. Patient also reports pain when attempting to close his hand. Patient reports the pain started approximately 3 days ago and has not resolved. Patient denies taking medication to alleviate the pain. - Related Data Home Medications Medication Instructions Recorded Confirmed Albuterol Inhaler [Ventolin Hfa 1 - 2 puff INHALATION RT-Q6H PRN 12/01/17 01/15/18 Inhaler] traZODone HCL 25 mg PO HS 12/01/17 01/15/18 Allergies Allergy/AdvReac Type Severity Reaction Status Date / Time Pertussis Vaccines Allergy Rash/Hives Verified 11/26/18 14:48 Review of Systems ROS Statement: Those systems with pertinent positive or pertinent negative responses have been documented in the HPI. ROS Other: All systems not noted in ROS Statement are negative. Past Medical History Past Medical History: Asthma History of Any Multi-Drug Resistant Organisms: None Reported Additional Past Surgical History / Comment(s): eye surgery, Past Anesthesia/Blood Transfusion Reactions: No Reported Reaction Past Psychological History: Anxiety, Depression Smoking Status: Current every day smoker Past Alcohol Use History: Daily, Heavy Past Drug Use History: None Reported, Prescription Drug Abuse - Past Family History Father Family Medical History: No Reported History Mother Family Medical History: Musculoskeletal Disorder Additional Family Medical History / Comment(s): anxiety Brother(s) Family Medical History: Cancer Daughter(s) Family Medical History: No Reported History Son(s) Family Medical History: No Reported History General Exam - General Exam Comments Initial Comments: General: Well-developed well-nourished distress HEENT: Normocephalic/atraumatic, PERLL, pharynx erythema, swallowing well, EAC no erythema, no exudates, TM clear, no cervical lymph nodes Neck: Supple, nontender, trachea midline Chest/Lungs: Normal respirations, no signs of respiratory distress clear to auscultation bilaterally no wheezes, rales, rhonchi Cardiac: Regular rate and rhythm, normal S1-S2, no murmurs rubs or gallops Abdomen/GI: Soft nontender, bowel sounds equal or quadrant x4, no guarding, no rebound no CVA tenderness Musculoskeletal: Positive Phalen and Tinel test on right hand. +2 ulnar and radial pulses, bilaterally. Normal capillary refill. Skin: Warmth, no rashes or lesions, no cyanosis or diaphoresis Neurologic: AAO x 3, CN 2-12 intact, Psychiatric: Mood and affect normal, judgment normal Limitations: no limitations Course Vital Signs 11/26/18 14:46 Temperature 97.8 F Pulse Rate 68 Respiratory 16 Rate Blood Pressure 118/76 O2 Sat by Pulse 100 Oximetry Medical Decision Making - Medical Decision Making Patient is a 28-year-old male presents emergency Department with right hand pain. Distal history of physical examination suspect the patient to have carpal tunnel. Patient advised to alternate between Tylenol and ibuprofen for pain control. Patient advised to follow with primary care. Patient advised to wear a carpal tunnel brace to alleviate the pain. Patient advised to return to emergency department if symptoms worsen. Case discussed with physician. Disposition Clinical Impression: Right hand pain Disposition: HOME SELF-CARE Condition: Stable Instructions (If sedation given, give patient instructions): Paresthesia (ED), Carpal Tunnel Surgery (DC) Additional Instructions: Please use a carpal tunnel brace. Please follow primary care. Please return to emergency department if symptoms worsen. Alternate between Tylenol and ibuprofen for pain control. Is patient prescribed a controlled substance at d/c from ED?: No Referrals: Piyush Robins MD [Primary Care Provider] - 1-2 days Time of Disposition: 15:59
== END 2018-11-26 16:18 | disposition home or self-care (01) ==
LOC: EC 14:12
DX: M79.641 Pain in right hand (principal); F41.9 Anxiety disorder, unspecified; F32.9 Major depressive disorder, single episode, unspecified; F17.200 Nicotine dependence, unspecified, uncomplicated; Z79.899 Other long term (current) drug therapy; Z88.7 Allergy status to serum and vaccine
CPT/HCPCS: 99283

== ENCOUNTER 2019-02-12 16:43 | Emergency (ER) | payer OTHER ==
[2019-02-12 16:58] VITALS: BP 129/70; PULSE 83; RESP 18; TEMP 97.8
[2019-02-12] MEDS ORDERED: PROPARACAINE 0.5% OPHTH DROPS 15 ML BTL BOTH EYES STA (16:59)
[2019-02-12] MEDS ORDERED: KETOTIFEN 0.025% OPHTH DROPS 5 ML BTL RIGHT EYE STA (18:02)
[2019-02-12] MEDS ORDERED: OFLOXACIN 0.3% OPHTH DROPS 5 ML BOTTLE RIGHT EYE STA (18:02)
--- NOTE | 2019-02-12 18:21 | ED ---
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 Patient reports symptoms started yesterday with some mild irritation. 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 He reports he follows with [facility]. Patient denies visual changes. Patient denies any other complaints. - Related Data Home Medications Medication Instructions Recorded Confirmed Albuterol Inhaler [Ventolin Hfa 1 - 2 puff INHALATION RT-Q6H PRN 12/01/17 01/15/18 Inhaler] traZODone HCL 25 mg PO HS 12/01/17 01/15/18 Allergies Allergy/AdvReac Type Severity Reaction Status Date / Time Pertussis Vaccines Allergy Rash/Hives Verified 02/12/19 16:57 Review of Systems ROS Statement: Those systems with pertinent positive or pertinent negative responses have been documented in the HPI. ROS Other: All systems not noted in ROS Statement are negative. Past Medical History Past Medical History: Asthma History of Any Multi-Drug Resistant Organisms: None Reported Additional Past Surgical History / Comment(s): eye surgery, Past Anesthesia/Blood Transfusion Reactions: No Reported Reaction Past Psychological History: Anxiety, Depression Smoking Status: Current every day smoker Past Alcohol Use History: Daily, Heavy Past Drug Use History: Marijuana, Prescription Drug Abuse - Past Family History Father Family Medical History: No Reported History Mother Family Medical History: Musculoskeletal Disorder Additional Family Medical History / Comment(s): anxiety Brother(s) Family Medical History: Cancer Daughter(s) Family Medical History: No Reported History Son(s) Family Medical History: No Reported History General Exam - General Exam Comments Initial Comments: Pleasant 20-year-old male. No distress. Limitations: no limitations General appearance: alert, in no apparent distress Head exam: Present: atraumatic, normocephalic, normal inspection Eye exam: Present: normal appearance, PERRL, EOMI, other (right eye conjunctival injection. Pressure 9 in R, 14 in L. Patient has conjunctival abrasion over 4 oclock position. ). Absent: scleral icterus, conjunctival injection, periorbital swelling ENT exam: Present: normal exam, mucous membranes moist Neck exam: Present: normal inspection. Absent: tenderness, meningismus, lymphadenopathy Respiratory exam: Present: normal lung sounds bilaterally. Absent: respiratory distress, wheezes, rales, rhonchi, stridor Cardiovascular Exam: Present: regular rate, normal rhythm, normal heart sounds. Absent: systolic murmur, diastolic murmur, rubs, gallop, clicks GI/Abdominal exam: Present: soft, normal bowel sounds. 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 Patient reports symptoms started yesterday with some mild irritation. 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 He reports he follows with [facility]. On exam he did have a small abrasion or irritation over the 4:00 2 central area of the iris. Patient has been advised he'll start the Patient on antibiotics as well as anti-inflammatory medicine for the eye. Discussed he needs prompt follow-up with ophthalmology. Patient is agreeable treat plan will comply. Disposition Clinical Impression: Conjunctival irritation Disposition: HOME SELF-CARE Condition: Good Instructions (If sedation given, give patient instructions): Conjunctivitis (ED) Additional Instructions: Patient advised to do the antibiotic drops every 4 hours with the 90s also use the antihistamine drops to help with inflammation. Recommended following up with ophthalmology if symptoms continue to persist. Is patient prescribed a controlled substance at d/c from ED?: No Referrals: Piyush Robins MD [Primary Care Provider] - 1-2 days Abdulkadir Grover MD [STAFF PHYSICIAN] - 1-2 days Time of Disposition: 18:21
== END 2019-02-12 18:30 | disposition home or self-care (01) ==
LOC: EC 16:43
DX: S05.01XA Injury of conjunctiva and corneal abrasion without foreign body, right eye, initial encounter (principal); J45.909 Unspecified asthma, uncomplicated; F41.9 Anxiety disorder, unspecified; F32.9 Major depressive disorder, single episode, unspecified; F17.200 Nicotine dependence, unspecified, uncomplicated; Z87.828 Personal history of other (healed) physical injury and trauma; Z79.899 Other long term (current) drug therapy; Z88.7 Allergy status to serum and vaccine
CPT/HCPCS: 99283

== ENCOUNTER 2019-06-13 14:54 | Emergency (ER) | payer OTHER | END 2019-06-13 15:20 | disposition left against medical advice (07) | LOC: EC 14:54 | DX: Z53.21 Procedure and treatment not carried out due to patient leaving prior to being seen by health care provider (principal) | CPT/HCPCS: 99499 ==

== ENCOUNTER 2019-12-12 13:36 | Emergency (ER) | payer OTHER ==
[2019-12-12 13:42] VITALS: BP 129/93; PULSE 74; RESP 16; TEMP 97.9
[2019-12-12] MEDS ORDERED: AZITHROMYCIN 500 MG TAB PO STA (14:41)
[2019-12-12] MEDS ORDERED: cefTRIAXone 250 MG VIAL IM STA (14:41)
--- NOTE | 2019-12-12 14:49 | ED ---
General Adult HPI - General Chief complaint: Urogenital Stated complaint: Male Time Seen by Provider: 12/12/19 14:17 Source: patient, RN notes reviewed, old records reviewed Mode of arrival: ambulatory Limitations: no limitations - History of Present Illness Initial comments: 29-year-old male patient presents to ED for evaluation of dysuria and penile d ischarge. Patient reports that this has been ongoing for the last 2 days. Patient reports that he had an occurrence where he hadunprotected sex with a new sexual partner number weeks ago as well as his regular sexual partner. He denies any lesions any scrotal pain or testicular pain. Denies any other complaints. Systemic: Pt denies fatigue, fever/chills, rash. Pt denies weakness, night sweats, weight loss. Neuro: Pt denies headache, visual disturbances, syncope or pre-syncope. HEENT: Pt denies ocular discharge or irritation, otalgia, rhinorrhea, pharyngitis or notable lymphadenopathy. Cardiopulmonary: Pt denies chest pain, SOB, heart palpitations, dyspnea on exertion. Abdominal/GI: Pt denies abdominal pain, n/v/d. : Denies new onset urinary or bowel incontinence. MSK: Pt denies myalgia, loss of strength or function in extremities. Neuro: Pt denies new onset weakness, paresthesias. - Related Data Previous Rx's Medication Instructions Recorded Cephalexin [Keflex] 500 mg PO Q12HR 7 Days #14 cap 12/12/19 Allergies Allergy/AdvReac Type Severity Reaction Status Date / Time Pertussis Vaccines Allergy Rash/Hives Verified 12/12/19 15:15 Review of Systems ROS Statement: Those systems with pertinent positive or pertinent negative responses have been documented in the HPI. ROS Other: All systems not noted in ROS Statement are negative. Past Medical History Past Medical History: Asthma History of Any Multi-Drug Resistant Organisms: None Reported Additional Past Surgical History / Comment(s): eye surgery, Past Anesthesia/Blood Transfusion Reactions: No Reported Reaction Past Psychological History: Anxiety, Depression Smoking Status: Current every day smoker Past Alcohol Use History: Occasional Past Drug Use History: Marijuana, Prescription Drug Abuse - Past Family History Father Family Medical History: No Reported History Mother Family Medical History: Musculoskeletal Disorder Additional Family Medical History / Comment(s): anxiety Brother(s) Family Medical History: Cancer Daughter(s) Family Medical History: No Reported History Son(s) Family Medical History: No Reported History General Exam - General Exam Comments Initial Comments: Constitutional: NAD, AOX3, Pt has pleasant affect. HEENT: NC/AT, trachea midline, neck supple. External ears appear normal, without discharge. Mucous membranes moist. EOM intact. There is no scleral icterus. No pallor noted. Cardiopulmonary: RRR, no murmurs, rubs or gallops, no JVD noted. Lungs CTAB in anterior and posterior isabel. No peripheral edema. Abdominal exam: Abdomen soft and non-distended. Abdomen non-tender to palpation in all 4 quadrants. Neuro: CN II-XII grossly intact. No nuchal rigidity. No raccon eyes, no sun sign, MSK: Full active ROM in upper and lower extremities, 5/5 stregnth. : No testicular tenderness, no lesions. Discharge noted from urethra, cultured. Limitations: no limitations Course Vital Signs 12/12/19 13:38 Temperature 97.9 F Pulse Rate 74 Respiratory 16 Rate Blood Pressure 129/93 O2 Sat by Pulse 99 Oximetry Medical Decision Making - Medical Decision Making 29-year-old male patient was ED for evaluation of possible STD exposure. Reports he isn't having dysuria and discharge for the last 2 days. Patient wishes to be treated empirically for gonorrhea and chlamydia. Urine is consistent with infection. Patient will also be treated with one week of Keflex twice a day and will follow up with his primary care provider. Patient's partner was in a room patient consented with patient her main room during all discussions. I did recommend to also see patients partner and treat her empirically. She declined and states that she is following up with the primary care provider and is awaiting testing results. Discussed with Dr. Shane. - Lab Data Lab Results 12/12/19 Range/Units 15:01 Urine Color Yellow Urine Appearance Turbid (Clear) Urine pH 6.0 (5.0-8.0) Ur Specific [place] 1.023 (1.001-1.035) Urine Protein 1+ H (Negative) Urine Glucose (UA) Negative (Negative) Urine Ketones Negative (Negative) Urine Blood Small H (Negative) Urine Nitrite Negative (Negative) Urine Bilirubin Negative (Negative) Urine Urobilinogen 3.0 (<2.0) mg/dL Ur Leukocyte Esterase Large H (Negative) Urine RBC 27 H (0-5) /hpf Urine WBC >182 H (0-5) /hpf Urine WBC Clumps Few H (None) /hpf Urine Bacteria Rare H (None) /hpf Urine Mucus Few H (None) /hpf Disposition Clinical Impression: UTI (urinary tract infection), Concern about STD in male without diagnosis Disposition: HOME SELF-CARE Condition: Stable Instructions (If sedation given, give patient instructions): Sexually Transmitted Diseases (ED), Urinary Tract Infection in Men (ED) Additional Instructions: Follow-up with primary care provider tomorrow. Take medication as directed. Return to ER if condition worsens in any way. Prescriptions: Cephalexin [Keflex] 500 mg PO Q12HR 7 Days #14 cap Is patient prescribed a controlled substance at d/c from ED?: No Referrals: None,Stated [Primary Care Provider] - 1-2 days Luis Angel Pickering [STAFF PHYSICIAN] - 1-2 days
[2019-12-12 15:23] LABS: Appearance,Urine Turbid (Clear); Bacteria,Urine Rare /hpf; Bilirubin,Urine Negative (Negative); Blood,Urine Small (Negative); Color,Urine Yellow; Glucose,Urine (UA) Negative (Negative); Ketones,Urine Negative (Negative); Leukocyte Esterase,Urine Large (Negative); Mucus,Urine Few /hpf; Nitrite,Urine Negative (Negative); Protein,Urine 1+ (Negative); RBC,Urine 27 /hpf (0-5); Specific Gravity,Urine 1.023 (1.001-1.035); WBC,Urine >182 /hpf (0-5)
[2019-12-12] MEDS ORDERED: CEPHALEXIN 500MG STARTER PACK 4 CAP BTL PO STA (15:39)
[2019-12-13 13:26] LABS: N. gonorrhoeae,PCR Positive (Neg,Equiv); Neisseria Source Urine
[2019-12-13 13:27] LABS: C. trachomatis,PCR Equivocal (Neg,Equiv); Chlamydia trachomatis Source Urine
== END 2019-12-12 15:50 | disposition home or self-care (01) ==
LOC: EC 13:36
DX: N39.0 Urinary tract infection, site not specified (principal); F17.200 Nicotine dependence, unspecified, uncomplicated; Z88.7 Allergy status to serum and vaccine
CPT/HCPCS: 81001; 87491; 87591; 87070; 87086; 87205; 99284; 96372; J0696